=== PATIENT | female | born 1950 | race Caucasian/White ===

== ENCOUNTER 2016-07-14 22:36 | Emergency (ER) | payer MEDICARE, OTHER ==
[~2016-07-14] VITALS: Ht 167.6 cm; Wt 52.2 kg
[2016-07-15] MEDS ORDERED: LEVETIRACETAM INJ 500 MG in SODIUM CHL 0.9% 100 ML IV ONE (00:30)
[2016-07-15] MEDS ORDERED: MORPHINE SULFATE 4 MG/ML SYRG IV ONE (00:30)
[2016-07-15] MEDS ORDERED: ONDANSETRON HCL 4 MG/2 ML VIAL IV ONE (00:30)
[2016-07-15] MEDS ORDERED: hydrALAZINE HCL 20 MG/ML VL IV ONE ×2 (00:30→01:30)
[2016-07-15] MEDS ORDERED: LEVETIRACETAM 500 MG/5ML INJ IV ONE (00:38)
[2016-07-15 00:40] LABS: DEFINITIVE VIEW TRANSMISSION; Hematocrit 44.7 % (36.0-46.0); Hemoglobin 14.5 g/dL (12.2-16.2); Mean Corpuscular Hemoglobin 29.8 pg (28.0-32.0); Mean Corpuscular Hgb Conc. 32.3 g/dL (32.0-36.0); Mean Corpuscular Volume 92.2 fL (80.0-100.0); Mean Platelet Volume 8.3 fL (7.4-10.4); Platelet Count (auto) 299 10^3/uL (140-450); Red Cell Distribution Width 12.1 % (11.6-16.0); SUSPECT VIEW TRANSMISSION; White Blood Cell 13.3 10^3/uL (4.4-10.8)
[2016-07-15 00:53] LABS: INR 0.99 (0.9-1.15); Prothrombin Time 10.2 sec (9.37-12.3)
[2016-07-15 01:04] LABS: Albumin 3.6 g/dL (3.4-5.0); BUN/Creatinine Ratio 17.2; Calcium 8.8 mg/dL (8.5-10.1); Potassium 3.1 mmol/L (3.5-5.1)
[2016-07-15 01:07] LABS: Bilirubin, Total 0.8 mg/dL (0.2-1.0); Total Protein 6.8 g/dL (6.4-8.2)
[2016-07-15 01:14] VITALS: BP 180/94
[2016-07-15 01:18] LABS: Metamyelocytes % 0; Myelocytes % 0; Promyelocytes % 0
[2016-07-15 01:19] LABS: Reactive Lymphocytes 0
[2016-07-15 02:12] LABS: Hypersegmented Neutrophils Present; Platelet Estimate Adequate; RBC Morphology Normal
== END 2016-07-15 01:30 | disposition short-term general hospital (02) ==
LOC: ER 22:45
DX: I60.9 Nontraumatic subarachnoid hemorrhage, unspecified (principal); R11.2 Nausea with vomiting, unspecified; F17.210 Nicotine dependence, cigarettes, uncomplicated; F12.10 Cannabis abuse, uncomplicated
CPT/HCPCS: 36415; 70450; 80053; 85007; 85027; 85610; 94761; 96365; 96375; 99285; J0360; J1953; J2270; J2405; J7030